=== PATIENT | male | born 1980 | race Caucasian/White ===

== ENCOUNTER 2016-08-10 12:48 | Emergency (ER) | payer OTHER ==
[2016-08-10 12:55] VITALS: RESP 18
--- NOTE | 2016-08-10 13:11 | ED ---
General Adult HPI - General Chief complaint: Urogenital Stated complaint: Blood in Urine Time Seen by Provider: 08/10/16 12:55 Source: patient, RN notes reviewed Mode of arrival: ambulatory Limitations: no limitations - History of Present Illness Initial comments: This is a 36-year-old male presents to the emergency department complaining of right-sided flank pain about a week ago states is now moved to the abdomen and a little bit and he started having some blood yesterday in his urine but today is much bloodier than it was yesterday. Patient states the pain now is not that bad but the blood in the urine is much worse. Patient states he had this once before but he could never finished following up because he ran out of insurance. Patient currently is not that much pain he has not noted any pain medicine is not nauseated. Patient denies any recent fever chills or cough. Patient denies any new partner for his first sexual activity goes. Patient denies any trauma to the area. Patient denies any swelling or redness. Patient denies any testicular pain. - Related Data Home Medications Medication Instructions Recorded Confirmed Dextroamphetamine/Amphetamine 30 mg PO DAILY 01/06/16 08/10/16 [Dextroamp-Amphet ER 30 mg Cap] traZODone HCL 150 mg PO HS 08/10/16 08/10/16 Previous Rx's Medication Instructions Recorded Hydrocodone/Acetaminophen [[place] 1 each PO Q4HR PRN #20 tab 08/10/16 5-325] Ketorolac [Toradol] 10 mg PO Q6HR #15 tab 08/10/16 Tamsulosin HCl [Flomax] 0.4 mg PO DAILY #7 cap.er.24h 08/10/16 Allergies Allergy/AdvReac Type Severity Reaction Status Date / Time No Known Allergies Allergy Verified 08/10/16 13:09 Review of Systems ROS Statement: Those systems with pertinent positive or pertinent negative responses have been documented in the HPI. ROS Other: All systems not noted in ROS Statement are negative. Past Medical History Past Medical History: No Reported History History of Any Multi-Drug Resistant Organisms: None Reported Additional Past Surgical History / Comment(s): CARPAL TUNNEL RELEASE Past Psychological History: Anxiety Smoking Status: Never smoker Past Alcohol Use History: None Reported Past Drug Use History: None Reported General Exam - General Exam Comments Initial Comments: GENERAL Patient is well-developed and well-nourished. Patient is in mild distress. EYES Patient's pupils are equal and round. Extraocular motion is intact SKIN Unremarkable NEURO The patient is alert and oriented 3 PYSCH Patient has normal interpersonal interactions. MUSCULOSKELETAL All 4 times and full range of motion. Genitalia on examination of genitalia there is no swelling redness tenderness or any abnormalities seen Limitations: no limitations Course Vital Signs 08/10/16 12:53 Temperature 97.2 F L Pulse Rate 113 H Respiratory 18 Rate Blood Pressure 127/83 O2 Sat by Pulse 99 Oximetry Medical Decision Making - Lab Data Result diagrams: 08/10/16 13:10 08/10/16 13:10 Lab Results 08/10/16 08/10/16 08/10/16 Range/Units 13:10 13:10 13:10 WBC 5.6 (3.8-10.6) k/uL RBC 4.75 (4.30-5.90) m/uL Hgb 15.1 (13.0-17.5) gm/dL Hct 44.2 (39.0-53.0) % MCV 93.0 (80.0-100.0) fL MCH 31.8 (25.0-35.0) pg MCHC 34.2 (31.0-37.0) g/dL RDW 13.0 (11.5-15.5) % Plt Count 232 (150-450) k/uL Neutrophils % 53 % Lymphocytes % 30 % Monocytes % 7 % Eosinophils % 5 % Basophils % 1 % Neutrophils # 3.0 (1.3-7.7) k/uL Lymphocytes # 1.7 (1.0-4.8) k/uL Monocytes # 0.4 (0-1.0) k/uL Eosinophils # 0.3 (0-0.7) k/uL Basophils # 0.1 (0-0.2) k/uL PT 10.0 (9.0-12.0) sec INR 1.0 (<1.1) APTT 21.9 L (22.0-30.0) sec Sodium 137 (137-145) mmol/L Potassium 4.5 (3.5-5.1) mmol/L Chloride 108 H (98-107) mmol/L Carbon Dioxide 21 L (22-30) mmol/L Anion Gap 8 mmol/L BUN 16 (9-20) mg/dL Creatinine 1.05 (0.66-1.25) mg/dL Est GFR (MDRD) Af Amer >60 (>60 ml/min/1.73 sqM) Est GFR (MDRD) Non-Af >60 (>60 ml/min/1.73 sqM) Glucose 89 (74-99) mg/dL Calcium 9.5 (8.4-10.2) mg/dL Total Bilirubin 0.7 (0.2-1.3) mg/dL AST 20 (17-59) U/L ALT 33 (21-72) U/L Alkaline Phosphatase 77 (38-126) U/L Total Protein 6.7 (6.3-8.2) g/dL Albumin 4.1 (3.5-5.0) g/dL Urine Color Urine Appearance (Clear) Urine pH (5.0-8.0) Ur Specific [place] (1.001-1.035) Urine Protein (Negative) Urine Glucose (UA) (Negative) Urine Ketones (Negative) Urine Blood (Negative) Urine Nitrite (Negative) Urine Bilirubin (Negative) Urine Urobilinogen (<2.0) mg/dL Ur Leukocyte Esterase (Negative) Urine RBC (0-5) /hpf Urine WBC (0-5) /hpf Urine Bacteria (None) /hpf Urine Mucus (None) /hpf 08/10/16 Range/Units 13:10 WBC (3.8-10.6) k/uL RBC (4.30-5.90) m/uL Hgb (13.0-17.5) gm/dL Hct (39.0-53.0) % MCV (80.0-100.0) fL MCH (25.0-35.0) pg MCHC (31.0-37.0) g/dL RDW (11.5-15.5) % Plt Count (150-450) k/uL Neutrophils % % Lymphocytes % % Monocytes % % Eosinophils % % Basophils % % Neutrophils # (1.3-7.7) k/uL Lymphocytes # (1.0-4.8) k/uL Monocytes # (0-1.0) k/uL Eosinophils # (0-0.7) k/uL Basophils # (0-0.2) k/uL PT (9.0-12.0) sec INR (<1.1) APTT (22.0-30.0) sec Sodium (137-145) mmol/L Potassium (3.5-5.1) mmol/L Chloride (98-107) mmol/L Carbon Dioxide (22-30) mmol/L Anion Gap mmol/L BUN (9-20) mg/dL Creatinine (0.66-1.25) mg/dL Est GFR (MDRD) Af Amer (>60 ml/min/1.73 sqM) Est GFR (MDRD) Non-Af (>60 ml/min/1.73 sqM) Glucose (74-99) mg/dL Calcium (8.4-10.2) mg/dL Total Bilirubin (0.2-1.3) mg/dL AST (17-59) U/L ALT (21-72) U/L Alkaline Phosphatase (38-126) U/L Total Protein (6.3-8.2) g/dL Albumin (3.5-5.0) g/dL Urine Color Dark Red Urine Appearance Turbid (Clear) Urine pH 6.0 (5.0-8.0) Ur Specific [place] 1.024 (1.001-1.035) Urine Protein 2+ H (Negative) Urine Glucose (UA) Negative (Negative) Urine Ketones Trace H (Negative) Urine Blood Large H (Negative) Urine Nitrite Negative (Negative) Urine Bilirubin Negative (Negative) Urine Urobilinogen <2.0 (<2.0) mg/dL Ur Leukocyte Esterase Small H (Negative) Urine RBC >182 H (0-5) /hpf Urine WBC 54 H (0-5) /hpf Urine Bacteria Few H (None) /hpf Urine Mucus Rare H (None) /hpf Disposition Clinical Impression: Kidney stone Disposition: HOME SELF-CARE Condition: Good Instructions: Kidney Stones (ED) Prescriptions: Hydrocodone/Acetaminophen [[place] 5-325] 1 each PO Q4HR PRN #20 tab PRN Reason: Pain Ketorolac [Toradol] 10 mg PO Q6HR #15 tab Tamsulosin HCl [Flomax] 0.4 mg PO DAILY #7 cap.er.24h Referrals: Sushil Downs DO [Primary Care Provider] - 1-2 days Time of Disposition: 15:37
[2016-08-10 13:44] LABS: Basophils # (A) 0.1 k/uL (0-0.2); Basophils % (A) 1 %; CH 32.4; CHCM 34.9; Eosinophils # (A) 0.3 k/uL (0-0.7); Eosinophils % (A) 5 %; HCT 44.2 % (39.0-53.0); HDW 2.51; HGB 15.1 gm/dL (13.0-17.5); Luc % (Auto) 4; Lymphocytes # (A) 1.7 k/uL (1.0-4.8); Lymphocytes % (A) 30 %; MCH 31.8 pg (25.0-35.0); MCHC 34.2 g/dL (31.0-37.0); Mean Platelet Volume 8.7; Monocytes # (A) 0.4 k/uL (0-1.0); Monocytes % (A) 7 %; Neutrophils % (A) 53 %; RBC 4.75 m/uL (4.30-5.90); WBC 5.6 k/uL (3.8-10.6); WBC (Perox) 5.51
[2016-08-10 13:48] LABS: Appearance,Urine Turbid (Clear); Bacteria,Urine Few /hpf; Bilirubin,Urine Negative (Negative); Glucose,Urine (UA) Negative (Negative); Ketones,Urine Trace (Negative); Leukocyte Esterase,Urine Small (Negative); Mucus,Urine Rare /hpf; Nitrite,Urine Negative (Negative); Particle Count 38960; Protein,Urine 2+ (Negative); RBC,Urine >182 /hpf (0-5); Specific Gravity,Urine 1.024 (1.001-1.035); UA Billing (MACRO vs. MICRO) MICRO; Urobilinogen,Urine <2.0 mg/dL (<2.0); WBC,Urine 54 /hpf (0-5)
[2016-08-10 13:52] LABS: ALT 33 U/L (21-72); AST 20 U/L (17-59); Alkaline Phosphatase 77 U/L (38-126); Anion Gap 8 mmol/L; Blood Urea Nitrogen 16 mg/dL (9-20); Calcium 9.5 mg/dL (8.4-10.2); Carbon Dioxide 21 mmol/L (22-30); Chloride 108 mmol/L (98-107); Glucose 89 mg/dL (74-99); Non-African American GFR(MDRD) >60 (>60 ml/min/1.73 sqM); Potassium 4.5 mmol/L (3.5-5.1); Sodium 137 mmol/L (137-145); Total Bilirubin 0.7 mg/dL (0.2-1.3); Total Protein 6.7 g/dL (6.3-8.2)
[2016-08-10 14:00] LABS: Partial Thromboplastin Time 21.9 sec (22.0-30.0)
--- NOTE | 2016-08-10 14:02 | CT ---
EXAMINATION TYPE: CT abdomen pelvis wo con DATE OF EXAM: 08/10/2016 1:54 PM HISTORY: Gross hematuria CT DLP: 988 mGycm. Automated Exposure Control for Dose Reduction was Utilized. TECHNIQUE: CT scan of the abdomen and pelvis is performed without oral or IV contrast. COMPARISON: NONE FINDINGS: Within the limitations of a non-contrast study, the following observations are made. LUNG BASES: There is 2 mm subpleural nodule in the right midlung on axial image 4. LIVER/GB: No significant abnormality is appreciated. PANCREAS: No significant abnormality is seen. SPLEEN: No significant abnormality is seen. ADRENALS: No significant abnormality is seen. KIDNEYS: There is 3 mm calculus lower pole level right kidney on axial image 64. There are 2-3 calcul i scattered throughout the left kidney with largest measuring 6 mm on long axis on axial image 61. There is 2 mm calculus in distal right ureter on axial image 133. There is larger obstructing 5 mm ca lculus in distal right ureter at UVJ on axial image 137. This is causing asymmetric mild diffuse righ t-sided hydroureter and pyelocaliectasis. No intraluminal calculus and poorly distended bladder is se en. No left-sided hydronephrosis is noted. There are several left-sided pelvic phleboliths noted. BOWEL: Normal-appearing appendix is seen. There are some scattered diverticula in the sigmoid colon. GENITAL ORGANS: No gross abnormality seen. LYMPH NODES: No greater than 1cm abdominal or pelvic lymph nodes are appreciated. OSSEOUS STRUCTURES: No significant abnormality is seen. OTHER: No significant additional abnormality is seen. IMPRESSION: There is 5 mm calculus in distal right ureter at UVJ causing mild right-sided hydronephro sis. There is second nonobstructing 2 mm calculus in distal right ureter just proximal to this. Backg round of bilateral nephrolithiasis is noted.
--- NOTE | 2016-08-10 15:08 | XR ---
EXAMINATION TYPE: XR KUB DATE OF EXAM: 08/10/2016 2:58 PM CLINICAL HISTORY: Hematuria today. Lower abdominal pain. TECHNIQUE: 2 upright KUB images of the abdomen are obtained. COMPARISON: CT abdomen and pelvis from earlier today.. FINDINGS: The 5 mm distal right ureter calculus is not well seen but redemonstrated just below lower sacrum. There is left-sided pelvic phlebolith is seen just inferior to this level redemonstrated. Sahil ateral renal calculi on CT are less well seen on plain films. There is overall gas seen in nondilated small and large bowel loops. Visualized osseous structures ar e intact. Lung bases are clear. IMPRESSION: The distal right 5 mm ureter calculus is not as well seen on plain film versus recent CT but likely stable.
[2016-08-10] MEDS ORDERED: KETOROLAC 60 MG/2 ML VIAL IM STA ×2 (15:38→16:23)
[2016-08-10 15:56] VITALS: BP 125/79; PULSE 82; TEMP 98.5
[2016-08-10] MEDS ORDERED: KETOROLAC 30 MG/ML 1 ML VIAL IVP STA (16:08)
== END 2016-08-10 16:33 | disposition home or self-care (01) ==
LOC: EC 12:48
DX: N20.0 Calculus of kidney (principal); F41.9 Anxiety disorder, unspecified; Z79.899 Other long term (current) drug therapy
CPT/HCPCS: 36415; 80053; 85025; 85610; 85730; 81001; 74000; 74176; 99284; 96372; J1885

== ENCOUNTER → 2016-09-16 | Outpatient (CLI) | payer OTHER ==
--- NOTE | 2016-09-16 11:43 | XR ---
EXAMINATION TYPE: XR KUB DATE OF EXAM: 09/16/2016 11:37 AM HISTORY: Pain Comparison: 08/02/2016Single KUB is submitted for interpretation. Findings: Right renal calculi: None Visualized. Right ureteral calculi: None Visualized. Left renal calculi: Left renal calculus approximately 9.7 x 3.6 mm.Small 2 mm calculus lower pole le ft kidney. Left ureteral calculi: None Visualized. Pelvic calcifications: Stable left-sided phleboliths. Bowel gas pattern is unremarkable. No free air. No mass effects. IMPRESSION: 1. Left-sided nephrolithiasis.
== END ==
LOC: RADXRMAIN 11:25
PROVIDERS: ATTEND Urology
DX: N20.0 Calculus of kidney (principal)
CPT/HCPCS: 74000

== ENCOUNTER → 2017-03-25 | Outpatient (CLI) | payer OTHER ==
--- NOTE | 2017-03-25 08:45 | XR ---
EXAMINATION TYPE: XR KUB DATE OF EXAM: 03/25/2017 COMPARISON: 09/16/2016 INDICATION: Left-sided kidney stone, lithotripsy on Tuesday. TECHNIQUE: Single view abdomen supine view FINDINGS: There is a normal bowel gas pattern. Psoas margins are normal. No organomegaly is present. Couple of small phleboliths are likely within the hemipelvis were present on 09/16/2016. The previous calcification over the mid left kidney is not identified at this time. Fecal debris is i n this region possibly obscuring the calcification. IMPRESSION: 1. Calcification within the left kidney is not identified at this time.
== END ==
LOC: RADXRMAIN 08:26
PROVIDERS: ATTEND Urology
DX: N28.89 Other specified disorders of kidney and ureter (principal)
CPT/HCPCS: 74000

== ENCOUNTER 2018-08-29 07:09 | Emergency (ER) | payer OTHER ==
[2018-08-29] MEDS ORDERED: ONDANSETRON 4 MG/2 ML VIAL IVP STA (07:30)
[2018-08-29] MEDS ORDERED: SODIUM CHLORIDE 0.9% 1,000 ML IV STA (07:30)
--- NOTE | 2018-08-29 07:35 | ED ---
General Adult HPI - General Chief complaint: Nausea/Vomiting/Diarrhea Stated complaint: Poss Food Poisoning Time Seen by Provider: 08/29/18 07:21 Source: patient, RN notes reviewed, old records reviewed Mode of arrival: wheelchair Limitations: no limitations - History of Present Illness Initial comments: 38 -year-old male with no chronic medical problems presents for evaluation of nausea vomiting and diarrhea. Patient's symptoms began at approximately 10 PM yesterday evening. He states it developed after eating fast food. He's had chills with no fevers. Minimal crampy abdominal pain. He's had multiple episodes of nonbilious nonbloody emesis and this has progressed to significant loose stool or diarrhea. No recent travel. No URI symptoms. - Related Data Home Medications Medication Instructions Recorded Confirmed No Known Home Medications 08/29/18 08/29/18 Allergies Allergy/AdvReac Type Severity Reaction Status Date / Time No Known Allergies Allergy Verified 08/29/18 07:49 Review of Systems ROS Statement: Those systems with pertinent positive or pertinent negative responses have been documented in the HPI. ROS Other: All systems not noted in ROS Statement are negative. Past Medical History Past Medical History: No Reported History History of Any Multi-Drug Resistant Organisms: None Reported Additional Past Surgical History / Comment(s): CARPAL TUNNEL RELEASE Past Psychological History: Anxiety Smoking Status: Current every day smoker Past Alcohol Use History: None Reported Past Drug Use History: None Reported General Exam Limitations: no limitations General appearance: alert, in no apparent distress Head exam: Present: atraumatic, normocephalic Eye exam: Present: normal appearance, PERRL ENT exam: Present: mucous membranes dry Neck exam: Present: normal inspection. Absent: tenderness, meningismus Respiratory exam: Present: normal lung sounds bilaterally. Absent: respiratory distress, wheezes Cardiovascular Exam: Present: regular rate, normal rhythm GI/Abdominal exam: Present: soft, tenderness (Mild generalized tenderness). Absent: distended, guarding, rebound Extremities exam: Present: normal inspection, normal capillary refill. Absent: pedal edema, calf tenderness Neurological exam: Present: alert, oriented X3, CN II-XII intact. Absent: motor sensory deficit Psychiatric exam: Present: normal affect, normal mood Skin exam: Present: warm, dry, intact. Absent: cyanosis, diaphoretic Course Vital Signs 08/29/18 08/29/18 07:14 08:43 Temperature 97.7 F Pulse Rate 86 80 Respiratory 20 16 Rate Blood Pressure 123/87 122/72 O2 Sat by Pulse 100 99 Oximetry Medical Decision Making - Medical Decision Making 38-year-old male presenting with nausea vomiting diarrhea. Patient reevaluated, does appear dehydrated, minimal generalized abdominal tenderness on exam, stable vitals. Laboratory studies obtained, his Leukocytosis and elevated hemoglobin likely secondary to some hemoconcentration. Electrolytes within normal limits. Patient given 2 L IV hydration, Zofran. He has no further episodes of vomiting while in the emergency department. He is feeling better on reevaluation. Will be discharged home, patient's continue oral hydration at home, return with worsening or changing symptoms, follow-up with primary care physician. - Lab Data Result diagrams: 08/29/18 07:50 08/29/18 07:50 Lab Results 08/29/18 08/29/18 Range/Units 07:50 07:50 WBC 14.4 H (3.8-10.6) k/uL RBC 5.69 (4.30-5.90) m/uL Hgb 17.8 H (13.0-17.5) gm/dL Hct 53.0 (39.0-53.0) % MCV 93.1 (80.0-100.0) fL MCH 31.3 (25.0-35.0) pg MCHC 33.6 (31.0-37.0) g/dL RDW 13.8 (11.5-15.5) % Plt Count 263 (150-450) k/uL Neutrophils % 95 % Lymphocytes % 2 % Monocytes % 3 % Eosinophils % 1 % Basophils % 0 % Neutrophils # 13.6 H (1.3-7.7) k/uL Lymphocytes # 0.2 L (1.0-4.8) k/uL Monocytes # 0.4 (0-1.0) k/uL Eosinophils # 0.1 (0-0.7) k/uL Basophils # 0.0 (0-0.2) k/uL Sodium 137 (137-145) mmol/L Potassium 4.6 (3.5-5.1) mmol/L Chloride 103 (98-107) mmol/L Carbon Dioxide 24 (22-30) mmol/L Anion Gap 10 mmol/L BUN 23 H (9-20) mg/dL Creatinine 1.18 (0.66-1.25) mg/dL Est GFR (CKD-EPI)AfAm 89 (>60 ml/min/1.73 sqM) Est GFR (CKD-EPI)NonAf 77 (>60 ml/min/1.73 sqM) Glucose 136 H (74-99) mg/dL Calcium 10.1 (8.4-10.2) mg/dL Total Bilirubin 1.0 (0.2-1.3) mg/dL AST 29 (17-59) U/L ALT 37 (21-72) U/L Alkaline Phosphatase 71 (38-126) U/L Total Protein 7.6 (6.3-8.2) g/dL Albumin 4.9 (3.5-5.0) g/dL Lipase 26 (23-300) U/L Disposition Clinical Impression: Dehydration, Nausea vomiting and diarrhea Disposition: HOME SELF-CARE Condition: Good Instructions (If sedation given, give patient instructions): Acute Nausea and Vomiting (ED), Acute Diarrhea (ED) Is patient prescribed a controlled substance at d/c from ED?: No Referrals: None,Stated [Primary Care Provider] - 1-2 days Anny Franklin MD [STAFF PHYSICIAN] - 1-2 days Time of Disposition: 09:39
[2018-08-29 08:17] LABS: Albumin 4.9 g/dL (3.5-5.0); Calcium 10.1 mg/dL (8.4-10.2); Potassium 4.6 mmol/L (3.5-5.1); Total Protein 7.6 g/dL (6.3-8.2)
[2018-08-29 08:24] LABS: Basophils % (A) 0 %; Eosinophils # (A) 0.1 k/uL (0-0.7); Eosinophils % (A) 1 %; HGB 17.8 gm/dL (13.0-17.5); Lymphocytes # (A) 0.2 k/uL (1.0-4.8); Lymphocytes % (A) 2 %; MCH 31.3 pg (25.0-35.0); MCHC 33.6 g/dL (31.0-37.0); MCV 93.1 fL (80.0-100.0); Mean Platelet Volume 7.6; Monocytes # (A) 0.4 k/uL (0-1.0); Monocytes % (A) 3 %; Neutrophils # (A) 13.6 k/uL (1.3-7.7); Neutrophils % (A) 95 %; Platelet Count 263 k/uL (150-450); RBC 5.69 m/uL (4.30-5.90); RDW 13.8 % (11.5-15.5); WBC 14.4 k/uL (3.8-10.6)
[2018-08-29] MEDS ORDERED: SODIUM CHLORIDE 0.9% 1,000 ML IV ONE (08:32)
[2018-08-29 09:46] VITALS: BP 126/75; PULSE 78; RESP 18
[2018-08-29 09:53] VITALS: TEMP 98.8
== END 2018-08-29 09:53 | disposition home or self-care (01) ==
LOC: EC 07:09
DX: R11.2 Nausea with vomiting, unspecified (principal); E86.0 Dehydration; R19.7 Diarrhea, unspecified; D72.829 Elevated white blood cell count, unspecified; D58.2 Other hemoglobinopathies; F17.200 Nicotine dependence, unspecified, uncomplicated
CPT/HCPCS: 36415; 80053; 83690; 85025; 99284; 96374; 96361 ×2; J2405

== ENCOUNTER → 2020-02-26 | Outpatient (CLI) | payer OTHER | END | disposition home or self-care (01) | LOC: LABWHC1 09:19 | PROVIDERS: ATTEND Emergency Medicine | DX: Z20.828 Contact with and (suspected) exposure to other viral communicable diseases (principal) | CPT/HCPCS: U0003; C9803 ==

== ENCOUNTER 2020-09-21 13:33 | Emergency (ER) | payer OTHER ==
[2020-09-21] MEDS ORDERED: DIPH,PERTUS(ACELL)TETVAC-LF 0.5 ML VIAL IM ONE (13:47)
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
[2020-09-21 14:37] VITALS: BP 135/78; PULSE 89; RESP 16; TEMP 97.8
== END 2020-09-21 14:36 | disposition home or self-care (01) ==
LOC: EC 13:33
DX: S00.81XA Abrasion of other part of head, initial encounter (principal); S09.90XA Unspecified injury of head, initial encounter; F17.200 Nicotine dependence, unspecified, uncomplicated; Y04.0XXA Assault by unarmed brawl or fight, initial encounter
CPT/HCPCS: 70450; 90471; 90715; 99284

== ENCOUNTER → 2024-03-23 | Outpatient (CLI) | payer OTHER ==
--- NOTE | 2024-03-23 15:31 | XR ---
EXAMINATION TYPE: XR lumbosacral spine min 4V DATE OF EXAM: 03/23/2024 3:25 PM COMPARISON: None. 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 FINDINGS: There are 5 lumbar-type vertebral bodies. Pedicles are intact. No spondylolytic defects are evident. Mild facet degenerative changes are present. Disc heights are preserved. Vertebral body heights are p reserved. IMPRESSION: 1. No acute osseous abnormalities lumbar spine [facility], , 03/23/2024 3:28 PM
== END | disposition home or self-care (01) ==
LOC: RADXRMAIN 14:58
PROVIDERS: ATTEND Family Medicine
DX: M51.360 Other intervertebral disc degeneration, lumbar region with discogenic back pain only (principal)
CPT/HCPCS: 72110